=== PATIENT | female | born 1970 | race American Indian/Alaskan Native ===

== ENCOUNTER 2017-01-17 10:37 | Outpatient (CLI) | payer OTHER ==
--- NOTE | 2017-01-17 11:55 | Fluoroscopy Report ---
BARIUM SWALLOW: History: Dysphagia. Fluoroscopy was utilized. 53 fluoroscopic images were captured. The patient swallows barium without difficulty demonstrating normal coordination. The cervical and thoracic portions of the esophagus demonstrate normal contours and there is normal peristalsis. There is no evidence of a hiatus hernia and no reflux is demonstrated. IMPRESSION: Normal study.
== END 2017-01-17 10:38 | disposition home or self-care (01) ==
LOC: FLUORO 10:37
PROVIDERS: ATTEND Otolaryngology
DX: R13.10 Dysphagia, unspecified (principal)
CPT/HCPCS: 74220